=== PATIENT | female | born 1975 | race Two or more races ===

== ENCOUNTER → 2024-05-02 | Outpatient (CLI) | payer MEDICAID, SELFPAY ==
--- NOTE | 2024-05-02 15:30 | XR_ITS ---
Examination: Breast ultrasound complete, bilateral Date and time of exam: May 02, 2024 1540 hours INDICATIONS: Bilateral breast sonography October 28, 2023 1:00 nodule left breast 4 mm 2:00 nodule left breast 4 mm Technique: Real-time grayscale ultrasonographic imaging bilateral breasts, including all 4 quadrants as well as nipple retroareolar and axillary regions. Findings: Sonographic images right breast Retroareolar oval mass circumscribed 9 x 8 mm Sonographic images left breast 11:00 cyst 4 x 5 mm 12:00 oval mass versus glandular tissue 7 x 6 mm IMPRESSION: BI-RADS Category 3: Probably benign findings Recommend 1 additional 6 month bilateral breast sonography follow-up to document stability of solid nodules described above
== END | disposition home or self-care (01) ==
PROVIDERS: PCP Physician Assistant; Referring Provider Physician Assistant; Visit Provider Physician Assistant
DX: N63.41 Unspecified lump in right breast, subareolar (principal); N63.25 Unspecified lump in the left breast, overlapping quadrants
CPT/HCPCS: 76641

== ENCOUNTER → 2024-10-12 | Outpatient (CLI) | payer MEDICAID, SELFPAY ==
--- NOTE | 2024-10-12 13:00 | XR_ITS ---
Examination: Breast ultrasound complete, bilateral Date and time of exam: October 12, 2024 1412 hours INDICATIONS: Mammogram October 28, 2023 right breast 8mm nodule upper outer quadrant, breast sonography May 02, 2024 right breast 12:00 oval mass versus glandular tissue 7 x 6 mm Technique: Real-time grayscale ultrasonographic imaging bilateral breasts, including all 4 quadrants as well as nipple retroareolar and axillary regions. Findings: Sonographic images right breast Retroareolar nodule circumscribed 7 x 7 mm Sonographic images left breast 11:00 nodule lobular margins 7 x 5 mm IMPRESSION: BI-RADS Category 3: Probably benign findings One additional 6 month bilateral breast sonography follow-up is needed to document stability of bilateral breast nodules described above
--- NOTE | 2024-10-12 14:00 | XR_ITS ---
Examination: Diagnostic digital mammography, bilateral Computer aided detection 3-D breast Tomosynthesis, bilateral Date and time of exam: 2024 1425 hours Compared to mammograms dating to July 22, 2021 Technique: Nonmagnified MLO, CC views of the breasts to been obtained, reconstructed from 3-D Tomosynthesis images. R2 computer aided detection program utilized for evaluation of suspicious masses and/or abnormal calcifications. 3-D Tomosynthesis images obtained. Findings: The breast is heterogeneously dense, which may obscure small masses 10 mm angular nodule upper outer right breast posterior depth Impression: BI-RADS Category 0: Incomplete: Need additional imaging evaluation Recommend follow-up spot tomographic views of this mass
== END | disposition home or self-care (01) ==
PROVIDERS: PCP Physician Assistant; Referring Provider Physician Assistant; Visit Provider Physician Assistant
DX: N63.11 Unspecified lump in the right breast, upper outer quadrant (principal); R92.333 Mammographic heterogeneous density, bilateral breasts; N63.41 Unspecified lump in right breast, subareolar; N63.22 Unspecified lump in the left breast, upper inner quadrant
CPT/HCPCS: 76641; 77062; 77066; G0279

== ENCOUNTER → 2025-01-30 | Outpatient (CLI) | payer MEDICAID, SELFPAY ==
--- NOTE | 2025-01-30 09:15 | XR_ITS ---
Examination: Diagnostic digital mammography, unilateral, right Computer aided detection 3-D breast Tomosynthesis, unilateral Date and time of exam: January 30, 2025, 0909 hours INDICATIONS: Mammogram October 12, 2024 10 mm nodule upper outer right breast posterior depth Technique: Nonmagnified MLO, CC views of the right breast have been obtained, reconstructed from 3-D Tomosynthesis images. R2 computer aided detection program utilized for evaluation of suspicious masses and/or abnormal calcifications. 3-D Tomosynthesis images obtained. Findings: The breast is heterogeneously dense, which may obscure small masses Suspicious nodule is not depicted on the spot compression views Impression: BI-RADS Category 2: Benign findings, recommend yearly follow-up mammography
== END | disposition home or self-care (01) ==
LOC: CDIM 08:48
PROVIDERS: Referring Provider Family Medicine; Visit Provider Family Medicine
DX: N63.11 Unspecified lump in the right breast, upper outer quadrant (principal)
CPT/HCPCS: 77061; 77065; G0279